=== PATIENT | female | born 1985 | race American Indian/Alaskan Native ===

== ENCOUNTER 2017-10-08 16:38 | Emergency (ER) | payer MEDICAID, OTHER ==
[2017-10-08 16:39] VITALS: BMI 25.9
[2017-10-08 16:49] VITALS: BP 122/82; PULSE 90; RESP 16; TEMP 98.6; O2SAT 98
--- NOTE | 2017-10-08 18:07 | C.PDOC ---
History Of Present Illness 32 y/o F c PMHx asthma p/w cough, congestion, sore throat, and body aches x 5 days. Denies ever having fever. She denies dyspnea, rash, recent travel, vomiting, diarrhea. Patient had scheduled appointment with her urology 2 days ago and was given prescription for renal US, abdominal XR, and labs and was told to go to "hospital" to have them done. Time Seen by Provider: 10/08/17 17:19 Chief Complaint (Nursing): Cough, Cold, Congestion Past Medical History Vital Signs: Last Vital Signs Temp 98.6 F 10/08/17 16:45 Pulse 90 10/08/17 16:45 Resp 16 10/08/17 16:45 BP 122/82 10/08/17 16:45 Pulse Ox 98 10/08/17 18:07 - Medical History PMH: Asthma, HTN (does not take medication) - [employer] Procedures INJECT/INFUSE ELECTROLYT (02/02/15) TETANUS TOXOID ADMINIST (12/04/14) Family History: States: Unknown Family Hx - Social History Hx Tobacco Use: Yes Hx Alcohol Use: Yes Hx Substance Use: No - Immunization History Hx Tetanus Toxoid Vaccination: No Hx Influenza Vaccination: No Hx Pneumococcal Vaccination: No Review Of Systems Except As Marked, All Systems Reviewed And Found Negative. Constitutional: Negative for: Fever Respiratory: Negative for: Shortness of Breath Physical Exam - Physical Exam Additional Physical Exam Comments: Gen: NAD Head: NC Eyes: No scleral icterus ENT: No pharyngeal erythema or exudates. Neck: Supple CV: Regular rate Lungs: CTA b/l. No wheezing. Abd: Soft, NT Back: No CVA tenderness Ext: No swelling Skin: No rash Neuro: Alert, no focal deficit ED Course And Treatment O2 Sat by Pulse Oximetry: 98 Medical Decision Making Medical Decision Making: Informed patient that these outpatient tests can be done in the hospital building but as outpatient and not through ED. Offered patient Tamiflu but she declined. Instructed patient to continue oral hydration, ibuprofen. Gave patient instructions on getting her testing performed through outpatient appointments. Disposition - Disposition Referrals: Magda Cleveland [Medical Doctor] - Disposition: HOME/ ROUTINE Disposition Time: 18:06 Condition: STABLE Prescriptions: Ibuprofen [Motrin] 1 tab PO Q6 #30 tab Instructions: Upper Respiratory Infection (ED) Forms: [facility] (Mexican) - Clinical Impression Clinical Impression: Upper respiratory infection
== END 2017-10-08 18:24 | disposition home or self-care (01) ==
LOC: C.ER 16:38
DX: J06.9 Acute upper respiratory infection, unspecified (principal); F17.210 Nicotine dependence, cigarettes, uncomplicated

== ENCOUNTER 2017-11-18 10:49 | Emergency (ER) | payer OTHER ==
[2017-11-18 10:50] VITALS: BMI 25.9
[2017-11-18 11:04] VITALS: BP 117/70; PULSE 89; RESP 16; TEMP 98.2; O2SAT 99
--- NOTE | 2017-11-18 12:00 | C.PDOC ---
History Of Present Illness 32 year old female with a past medical history of asthma presents to the Emergency Department with 2 week history of cough, productive of sputum. Of note patient is a smoker. She went to see her primary doctor 2 days ago who prescribed her a z-pack and cough medicine. Patient reports feeling some improvement but states the cough is persistent and last night she felt slightly short of breath, prompting her to come in for further evaluation. No fevers or chills. Time Seen by Provider: 11/18/17 11:09 Chief Complaint (Nursing): Cough, Cold, Congestion History Per: Patient History/Exam Limitations: no limitations Onset/Duration Of Symptoms: Days (x 2 weeks) Current Symptoms Are (Timing): Still Present Past Medical History Reviewed: Historical Data, Nursing Documentation, Vital Signs Vital Signs: Last Vital Signs Temp 98.2 F 11/18/17 11:02 Pulse 89 11/18/17 11:02 Resp 16 11/18/17 11:02 BP 117/70 11/18/17 11:02 Pulse Ox 99 11/18/17 12:20 - Medical History PMH: Asthma, HTN (does not take medication) - [facility] Procedures INJECT/INFUSE ELECTROLYT (02/02/15) TETANUS TOXOID ADMINIST (12/04/14) Family History: States: Unknown Family Hx - Social History Hx Tobacco Use: Yes Hx Alcohol Use: Yes Hx Substance Use: No - Immunization History Hx Tetanus Toxoid Vaccination: No Hx Influenza Vaccination: No Hx Pneumococcal Vaccination: No Review Of Systems Constitutional: Negative for: Fever, Chills Cardiovascular: Negative for: Chest Pain Respiratory: Positive for: Cough, Shortness of Breath (last night), Sputum Physical Exam - Physical Exam Appears: Well, Non-toxic, No Acute Distress Skin: Warm, Dry, No Rash Head: Atraumatic, Normacephalic Eye(s): bilateral: Normal Inspection Nose: Normal, No Discharge Oral Mucosa: Moist Throat: Normal, No Erythema, No Exudate Neck: Normal ROM, Supple Lymphatic: No Adenopathy Chest: Symmetrical Cardiovascular: Rhythm Regular, No Murmur Respiratory: Normal Breath Sounds, No Rales, No Rhonchi, No Wheezing Neurological/Psych: Oriented x3, Normal Speech Gait: Steady ED Course And Treatment O2 Sat by Pulse Oximetry: 99 (RA) Pulse Ox Interpretation: Normal - Radiology CXR: Interpreted by Me, Viewed By Me CXR Interpretation: Yes: No Acute Disease Medical Decision Making Medical Decision Making: Impression: Cough, rule out pneumonia Plan: --Chest x-ray Progress, Reassess and Dispo: Patient remained afebrile alert and oriented with stable vital signs during ER evaluation. CXR shows no active disease. Patient already on medications including Zithromax. Discussed results with patient, and copy of xray report was provided. On re-examination, patient is resting comfortably in no acute respiratory distress. Patient given follow up instructions. Instructed to return to ER if symptoms worsen or new symptoms arise. Disposition Counseled Patient/Family Regarding: Studies Performed, Diagnosis, Need For Followup - Disposition Disposition: HOME/ ROUTINE Disposition Time: 11:59 Condition: STABLE Additional Instructions: Finish your antibiotics given by doctor. Instructions: Acute Bronchitis Forms: [facility] ([place]) - POA Present On Arrival: None - Clinical Impression Clinical Impression: Bronchitis - PA / CSR TECHNICIAN / Resident Statement MD/DO has reviewed & agrees with the documentation as recorded. - Scribe Statement The provider has reviewed the documentation as recorded by the Scribe (Danielle Watson) All medical record entries made by the Scribe were at my direction and personally dictated by me. I have reviewed the chart and agree that the record accurately reflects my personal performance of the history, physical exam, medical decision making, and the department course for this patient. I have also personally directed, reviewed, and agree with the discharge instructions and disposition.
== END 2017-11-18 12:04 | disposition home or self-care (01) ==
LOC: C.ER 10:49
DX: J40 Bronchitis, not specified as acute or chronic (principal); F17.210 Nicotine dependence, cigarettes, uncomplicated

== ENCOUNTER 2017-12-12 03:29 | Emergency (ER) | payer OTHER ==
[2017-12-12 03:29] VITALS: BMI 25.9
[2017-12-12 03:48] VITALS: O2SAT 98
[2017-12-12 05:37] LABS: SQUAMOUS EPITHIAL 1 /hpf (0-5); URINE BILIRUBIN NEGATIVE (NEGATIVE); URINE BLOOD 2+ (NEGATIVE); URINE CLARITY Clear (Clear); URINE COLOR Yellow (YELLOW); URINE GLUCOSE (UA) NORMAL (Normal); URINE LEUKOCYTE ESTERASE NEG Leu/uL (Negative); URINE PROTEIN NEGATIVE (NEGATIVE); URINE UROBILINOGEN NORMAL mg/dL (0.2-1.0)
--- NOTE | 2017-12-12 05:47 | C.PDOC ---
History Of Present Illness 32yo female, , presents to ED with complaints of vaginal bleeding. Patient sates "I am and miscarrying"; she is unsure of her LMP and states it might be at the end of September. Patient states she took a home test which was positive; patient unable to state when exactly she took the test. Patient denies any fever, chills, abdominal pain, vomiting, chest pain, shortness of breath. She has no other medical complaints. Time Seen by Provider: 12/12/17 03:51 Chief Complaint (Nursing): Female Genitourinary History Per: Patient History/Exam Limitations: no limitations Current Symptoms Are (Timing): Still Present Associated Symptoms: denies: Fever, Chills, Nausea, Vomiting, Diarrhea, Loss Of Appetite Abnormal Vaginal Bleeding: Yes Last Menstral Period: Sometime in September Past Medical History Reviewed: Historical Data, Nursing Documentation, Vital Signs Vital Signs: Last Vital Signs Temp 98.4 F 12/12/17 05:52 Pulse 82 12/12/17 05:52 Resp 22 12/12/17 05:52 BP 110/64 12/12/17 05:52 Pulse Ox 98 12/12/17 06:18 - Medical History PMH: Asthma, HTN (does not take medication), Kidney Stones Surgical History: No Surg Hx - [facility] Procedures INJECT/INFUSE ELECTROLYT (02/02/15) TETANUS TOXOID ADMINIST (12/04/14) Family History: States: Unknown Family Hx - Social History Hx Tobacco Use: Yes Hx Alcohol Use: Yes Hx Substance Use: Yes - Immunization History Hx Tetanus Toxoid Vaccination: No Hx Influenza Vaccination: No Hx Pneumococcal Vaccination: No Review Of Systems Except As Marked, All Systems Reviewed And Found Negative. Constitutional: Negative for: Fever, Chills Cardiovascular: Negative for: Chest Pain Respiratory: Negative for: Shortness of Breath Gastrointestinal: Negative for: Nausea, Vomiting, Abdominal Pain, Diarrhea Genitourinary: Positive for: Vaginal Bleeding Physical Exam - Physical Exam Appears: Non-toxic, No Acute Distress Skin: Normal Color, Warm, Dry Head: Atraumatic, Normacephalic Eye(s): bilateral: Normal Inspection, PERRL, EOMI Oral Mucosa: Moist Neck: Normal ROM, Supple Chest: Symmetrical Cardiovascular: Rhythm Regular Respiratory: Normal Breath Sounds Gastrointestinal/Abdominal: Normal Exam, Soft, No Tenderness Pelvic: Vaginal Bleeding (minimal active bleeding, no clots noted.), No Cervix Open Extremity: Normal ROM Neurological/Psych: Oriented x3 Gait: Steady ED Course And Treatment O2 Sat by Pulse Oximetry: 98 (RA) Pulse Ox Interpretation: Normal Progress Note: Labs and urinalysis reviewed, patient negative for . Results informed to patient who is requsting a sandwich. Patient appears well, in no acute distress and will be discharged home with instructions to follow up with clinic. Disposition Counseled Patient/Family Regarding: Diagnosis, Need For Followup - Disposition Referrals: Jagdish Moya MD [Staff Provider] - Disposition: HOME/ ROUTINE Disposition Time: 05:44 Condition: STABLE Additional Instructions: Please follow up in clinic Tylenol or advil for pain Return to ER worse Instructions: Menstruation Forms: [facility] (Czech) - Clinical Impression Clinical Impression: Menorrhagia - PA / PHARMACY RESIDENT / Resident Statement MD/DO has reviewed & agrees with the documentation as recorded. - Scribe Statement The provider has reviewed the documentation as recorded by the Scribe (Vanessa Tamez) Provider Attestation: All medical record entries made by the Scribe were at my direction and personally dictated by me. I have reviewed the chart and agree that the record accurately reflects my personal performance of the history, physical exam, medical decision making, and the department course for this patient. I have also personally directed, reviewed, and agree with the discharge instructions and disposition.
[2017-12-12 05:54] VITALS: BP 110/64; PULSE 82; RESP 22; TEMP 98.4
== END 2017-12-12 05:58 | disposition home or self-care (01) ==
LOC: C.ER 03:29
DX: N92.0 Excessive and frequent menstruation with regular cycle (principal); I10 Essential (primary) hypertension; Z72.0 Tobacco use

== ENCOUNTER 2017-12-28 13:13 | Emergency (ER) | payer OTHER ==
[2017-12-28 13:14] VITALS: BMI 25.9
[2017-12-28 13:30] VITALS: BP 104/70; PULSE 80; RESP 20; TEMP 97.5; O2SAT 99
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
--- NOTE | 2017-12-28 14:09 | RAD ---
PROCEDURE: Right Ankle Radiographs. HISTORY: R ankle sprain COMPARISON: None FINDINGS: BONES: Normal. No fracture. JOINTS: Normal. No osteoarthritis. Ankle mortise maintained. Talar dome intact SOFT TISSUES: Normal. OTHER FINDINGS: None. IMPRESSION: Normal right ankle radiographs.
== END 2017-12-28 14:22 | disposition home or self-care (01) ==
LOC: C.ER 13:13
DX: S93.401A Sprain of unspecified ligament of right ankle, initial encounter (principal); X50.9XXA Other and unspecified overexertion or strenuous movements or postures, initial encounter; Y93.01 Activity, walking, marching and hiking; Y92.410 Unspecified street and highway as the place of occurrence of the external cause

== ENCOUNTER 2018-01-23 21:01 | Emergency (ER) | payer OTHER ==
[2018-01-23 21:01] VITALS: BMI 25.9
[2018-01-23 21:18] VITALS: BP 125/79; PULSE 84; RESP 16; TEMP 98.5; O2SAT 100
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
== END 2018-01-23 23:04 | disposition home or self-care (01) ==
LOC: C.ER 21:01
DX: S00.12XA Contusion of left eyelid and periocular area, initial encounter (principal); Y04.0XXA Assault by unarmed brawl or fight, initial encounter